=== PATIENT | male | born 1995 | race Two or more races ===

== ENCOUNTER 2021-08-11 10:43 | Inpatient (IN) | payer OTHER ==
[~2021-08-11] VITALS: Ht 175.3 cm; Wt 150.8 kg
[2021-08-11] MEDS ORDERED: IBUPROFEN 600 MG TABLET PO ONE (14:30)
[2021-08-11] MEDS ORDERED: ACETAMINOPHEN 500 MG TABLET PO ONE (14:30)
[2021-08-11 15:59] LABS: BASOPHILS % (AUTO) 0.4 % (0.0-2.0); EOSINOPHILS % (AUTO) 0.1 % (1.0-6.0); HEMATOCRIT 46.6 % (41-53); HEMOGLOBIN 15.7 g/dL (13.5-17.5); LYMPHOCYTES # (AUTO) 1.6 K/uL (1.0-4.8); LYMPHOCYTES % (AUTO) 10.9 % (22.0-44.0); MEAN CORPUSCULAR HEMOGLOBIN 28.2 pg (26.0-34.0); MEAN CORPUSCULAR HGB CONC 33.6 G/dL (31.0-37.0); MEAN CORPUSCULAR VOLUME 84 fL (80-100); MONOCYTES # (AUTO) 1.3 K/uL (0.1-1.0); NEUTROPHILS # (AUTO) 11.4 K/uL (1.8-7.7); NEUTROPHILS % (AUTO) 79.6 % (40.0-70.0); PLATELET COUNT (AUTO) 458 K/uL (150-450); RED BLOOD CELL COUNT(AUTO) 5.54 MIL/uL (4.50-5.90)
[2021-08-11] MEDS ORDERED: HEPARIN SODIUM,PORCINE 5,000 UNITS/ML VIAL SQ SCH (16:00)
[2021-08-11] MEDS ORDERED: ONDANSETRON HCL 4 MG/2 ML VIAL IVP PRN (16:00)
[2021-08-11] MEDS ORDERED: ACETAMINOPHEN 325 MG TABLET PO PRN (16:00)
[2021-08-11] MEDS ORDERED: MAGNESIUM HYDROXIDE SUSPENSION 30 ML UDCUP PO PRN (16:00)
[2021-08-11] MEDS ORDERED: SODIUM CHLORIDE 0.9% 1,000 ML IV ONE (16:00)
[2021-08-11 16:13] LABS: ANION GAP 11 mmol/L (8-16); CALCIUM, TOTAL 9.1 mg/dL (8.8-10.5); CARBON DIOXIDE 26 mmol/L (22-29); CHLORIDE 100 mmol/L (98-107); CREATININE 1.32 mg/dL (0.60-1.30); GLUCOSE,RANDOM 103 mg/dL (70-110); POTASSIUM 4.3 mmol/L (3.5-5.1); PROTHROMBIN TIME 10.3 SEC (9.4-11.6); SODIUM SERUM 137 mmol/L (136-145); UREA NITROGEN, BLOOD 13 mg/dL (7-18)
[2021-08-11 16:14] LABS: GLOMERULAR FILTR. RATE CALC > 60 mL/min (>60)
[2021-08-11 16:20] LABS: ALANINE AMINOTRANSFERASE 139 U/L (12-78); ALBUMIN 4.1 g/dL (3.4-5.0); ALKALINE PHOSPHATASE 99 U/L (46-116); ASPARTATE AMINOTRANSFERASE 64 U/L (15-37); BILIRUBIN,TOTAL 0.6 mg/dL (0.1-1.0); TOTAL PROTEIN, SERUM 8.6 g/dL (6.4-8.2)
[2021-08-11 18:07] LABS: COVID AG,FIA SOURCE NASOPHARYNGEAL
[2021-08-11] MEDS: DOCUSATE SODIUM 100 MG CAPSULE PO SCH (20:22)
[2021-08-11 23:55] VITALS: BP 140/92
[2021-08-12] MEDS: MORPHINE SULFATE 2 MG/ML SYRINGE IVP PRN ×4 (00:50→20:10)
[2021-08-12 05:41] VITALS: BP 115/68
[2021-08-12 08:10] VITALS: BP 116/78
[2021-08-12] MEDS: DOCUSATE SODIUM 100 MG CAPSULE PO SCH ×2 (09:00→20:09)
[2021-08-12] MEDS: FAMOTIDINE 20 MG TABLET PO SCH (09:00)
[2021-08-12] MEDS ORDERED: BUPIVACAINE/EPI/PF 0.5% 30 ML VIAL ONE (11:18)
[2021-08-12] MEDS ORDERED: RINGERS SOLUTION,LACTATED 1,000 ML IV ONE (11:50)
[2021-08-12] MEDS ORDERED: MEPERIDINE-PF 25 MG/ML VIAL IVP PRN (14:15)
[2021-08-12] MEDS ORDERED: HYDROmorphone 2 MG/ML VIAL IVP PRN (14:15)
[2021-08-12] MEDS ORDERED: FentaNYL CITRATE PF 100 MCG/2 ML VIAL IVP PRN (14:15)
[2021-08-12] MEDS ORDERED: POVIDONE-IODINE 10% 15 ML SOLUTION UD ONE ×2 (14:41)
[2021-08-12] MEDS ORDERED: POVIDONE-IODINE 10% 15 ML SOLUTION UD TP ONE (15:16)
[2021-08-12 16:25] VITALS: BP 132/71
[2021-08-12 19:30] VITALS: BP 145/72
[2021-08-12] MEDS ORDERED: OXYGEN THERAPY IH SCH (20:00)
[2021-08-12] MEDS: GABAPENTIN 300 MG CAPSULE PO SCH (20:09)
[2021-08-12] MEDS: ASPIRIN 81 MG CHEWABLE TABLET PO SCH (20:09)
[2021-08-12] MEDS ORDERED: SODIUM CHLORIDE 0.9% 500 ML IV ONE (21:40)
[2021-08-12] MEDS: OxyCODONE HCL/ACETAMINOPHEN 5-325 MG TABLET PO PRN (21:46)
[2021-08-12] MEDS: CeFAZolin 1 GM/DEXTROSE 50 ML IV SCH (21:46)
[2021-08-12] MEDS: ZOLPIDEM TARTRATE 5 MG TABLET PO PRN (21:46)
[2021-08-13] MEDS: OxyCODONE HCL/ACETAMINOPHEN 5-325 MG TABLET PO PRN ×3 (03:32→23:31)
[2021-08-13 04:40] VITALS: BP 117/80
[2021-08-13] MEDS: CeFAZolin 1 GM/DEXTROSE 50 ML IV SCH (06:31)
[2021-08-13] MEDS ORDERED: MIDAZOLAM HCL 2 MG/2 ML VIAL IVP ONE (06:32)
[2021-08-13] MEDS ORDERED: NEOSTIGMINE METHYLSULFATE 1 MG/ML 10 ML VIAL IVP ONE (06:32)
[2021-08-13] MEDS ORDERED: SUCCINYLCHOLINE CHLORIDE 20 MG/ML 10 ML VIAL IVP ONE (06:32)
[2021-08-13] MEDS ORDERED: HYDROmorphone 2 MG/ML VIAL IVP ONE (06:32)
[2021-08-13] MEDS ORDERED: KETOROLAC TROMETHAMINE 60 MG/2 ML VIAL IM ONE (06:32)
[2021-08-13] MEDS ORDERED: ONDANSETRON HCL 4 MG/2 ML VIAL IVP ONE (06:32)
[2021-08-13] MEDS ORDERED: ROCURONIUM BROMIDE 10 MG/ML 5 ML VIAL IVP ONE (06:32)
[2021-08-13] MEDS ORDERED: PROPOFOL 1% 20 ML VIAL IVP ONE (06:32)
[2021-08-13] MEDS ORDERED: LIDOCAINE/PF 2% 5 ML VIAL IM ONE (06:32)
[2021-08-13] MEDS ORDERED: FentaNYL CITRATE PF 100 MCG/2 ML VIAL IVP ONE (06:32)
[2021-08-13] MEDS ORDERED: GLYCOPYRROLATE 0.2 MG/ML VIAL IM ONE (06:32)
[2021-08-13 07:51] VITALS: BP 130/98
[2021-08-13] MEDS: DOCUSATE SODIUM 100 MG CAPSULE PO SCH ×2 (08:18→20:23)
[2021-08-13] MEDS: FAMOTIDINE 20 MG TABLET PO SCH (08:18)
[2021-08-13] MEDS: ASPIRIN 81 MG CHEWABLE TABLET PO SCH ×2 (08:18→20:23)
[2021-08-13] MEDS: MORPHINE SULFATE 2 MG/ML SYRINGE IVP PRN ×3 (08:22→20:23)
[2021-08-13 08:29] VITALS: BP 138/89
[2021-08-13] MEDS: HEPARIN SODIUM,PORCINE 5,000 UNITS/ML VIAL SQ SCH ×3 (09:20→23:30)
[2021-08-13 16:04] VITALS: BP 168/78
[2021-08-13 17:49] VITALS: BP 135/84
[2021-08-13] MEDS: GABAPENTIN 300 MG CAPSULE PO SCH (20:23)
[2021-08-13] MEDS: ZOLPIDEM TARTRATE 5 MG TABLET PO PRN (21:33)
[2021-08-14 04:32] VITALS: BP 106/72
[2021-08-14 07:39] VITALS: BP 141/66
[2021-08-14] MEDS: MORPHINE SULFATE 2 MG/ML SYRINGE IVP PRN ×2 (07:55→16:39)
[2021-08-14 08:29] LABS: BASOPHILS % (AUTO) 0.8 % (0.0-2.0); EOSINOPHILS % (AUTO) 3.4 % (1.0-6.0); HEMATOCRIT 41.9 % (41-53); HEMOGLOBIN 14.1 g/dL (13.5-17.5); LYMPHOCYTES # (AUTO) 1.5 K/uL (1.0-4.8); LYMPHOCYTES % (AUTO) 13.6 % (22.0-44.0); MEAN CORPUSCULAR HEMOGLOBIN 28.6 pg (26.0-34.0); MEAN CORPUSCULAR HGB CONC 33.8 G/dL (31.0-37.0); MEAN CORPUSCULAR VOLUME 85 fL (80-100); MONOCYTES % (AUTO) 8.5 % (2.0-9.0); NEUTROPHILS # (AUTO) 8.3 K/uL (1.8-7.7); NEUTROPHILS % (AUTO) 73.7 % (40.0-70.0); PLATELET COUNT (AUTO) 426 K/uL (150-450); RED BLOOD CELL COUNT(AUTO) 4.94 MIL/uL (4.50-5.90); RED CELL DISTRIBUTION WIDTH 13.6 % (11.5-14.5)
[2021-08-14 08:43] LABS: ANION GAP 7 mmol/L (8-16); CALCIUM, TOTAL 9.1 mg/dL (8.8-10.5); CARBON DIOXIDE 29 mmol/L (22-29); CHLORIDE 100 mmol/L (98-107); CREATININE 1.02 mg/dL (0.60-1.30); GLOMERULAR FILTR. RATE CALC > 60 mL/min (>60); GLUCOSE,RANDOM 94 mg/dL (70-110); POTASSIUM 4.4 mmol/L (3.5-5.1); SODIUM SERUM 136 mmol/L (136-145); UREA NITROGEN, BLOOD 11 mg/dL (7-18)
[2021-08-14] MEDS: FAMOTIDINE 20 MG TABLET PO SCH (09:03)
[2021-08-14] MEDS: HEPARIN SODIUM,PORCINE 5,000 UNITS/ML VIAL SQ SCH ×2 (09:03→16:19)
[2021-08-14] MEDS: ASPIRIN 81 MG CHEWABLE TABLET PO SCH ×2 (09:03→20:12)
[2021-08-14] MEDS: DOCUSATE SODIUM 100 MG CAPSULE PO SCH ×2 (09:03→20:12)
[2021-08-14 16:10] VITALS: BP 134/72
[2021-08-14 19:25] VITALS: BP 125/83
[2021-08-14] MEDS: GABAPENTIN 300 MG CAPSULE PO SCH (20:12)
[2021-08-14] MEDS: ZOLPIDEM TARTRATE 5 MG TABLET PO PRN (20:12)
[2021-08-15] MEDS: HEPARIN SODIUM,PORCINE 5,000 UNITS/ML VIAL SQ SCH ×4 (00:37→23:09)
[2021-08-15 09:06] VITALS: BP 142/98
[2021-08-15] MEDS: MORPHINE SULFATE 2 MG/ML SYRINGE IVP PRN (09:08)
[2021-08-15] MEDS: ASPIRIN 81 MG CHEWABLE TABLET PO SCH ×2 (09:08→19:46)
[2021-08-15] MEDS: FAMOTIDINE 20 MG TABLET PO SCH (09:08)
[2021-08-15] MEDS: DOCUSATE SODIUM 100 MG CAPSULE PO SCH ×2 (09:08→19:46)
[2021-08-15 13:30] VITALS: BP 163/76
[2021-08-15] MEDS: OxyCODONE HCL/ACETAMINOPHEN 5-325 MG TABLET PO PRN ×2 (16:13→23:09)
[2021-08-15 17:53] VITALS: BP 138/94
[2021-08-15 19:22] VITALS: BP 125/71
[2021-08-15] MEDS: GABAPENTIN 300 MG CAPSULE PO SCH (19:46)
[2021-08-15] MEDS: ZOLPIDEM TARTRATE 5 MG TABLET PO PRN (23:09)
[2021-08-16 00:32] VITALS: BP 120/67
[2021-08-16 04:22] VITALS: BP 127/73
[2021-08-16 08:19] VITALS: BP 133/72
[2021-08-16] MEDS: HEPARIN SODIUM,PORCINE 5,000 UNITS/ML VIAL SQ SCH ×2 (08:22→16:58)
[2021-08-16] MEDS: ASPIRIN 81 MG CHEWABLE TABLET PO SCH ×2 (08:22→21:06)
[2021-08-16] MEDS: DOCUSATE SODIUM 100 MG CAPSULE PO SCH ×2 (08:23→21:05)
[2021-08-16] MEDS: OxyCODONE HCL/ACETAMINOPHEN 5-325 MG TABLET PO PRN ×3 (08:23→21:11)
[2021-08-16] MEDS: FAMOTIDINE 20 MG TABLET PO SCH (08:23)
[2021-08-16 16:32] VITALS: BP 133/72
[2021-08-16 20:59] VITALS: BP 128/74
[2021-08-16] MEDS: GABAPENTIN 300 MG CAPSULE PO SCH (21:05)
[2021-08-17] MEDS: HEPARIN SODIUM,PORCINE 5,000 UNITS/ML VIAL SQ SCH ×4 (00:45→21:05)
[2021-08-17 01:24] VITALS: BP 125/59
[2021-08-17 05:18] VITALS: BP 125/63
[2021-08-17 05:22] VITALS: BP 125/59
[2021-08-17] MEDS: ASPIRIN 81 MG CHEWABLE TABLET PO SCH ×2 (08:05→21:05)
[2021-08-17] MEDS: DOCUSATE SODIUM 100 MG CAPSULE PO SCH ×2 (08:05→21:05)
[2021-08-17] MEDS: OxyCODONE HCL/ACETAMINOPHEN 5-325 MG TABLET PO PRN ×3 (08:06→21:05)
[2021-08-17] MEDS: FAMOTIDINE 20 MG TABLET PO SCH (08:06)
[2021-08-17 08:08] VITALS: BP 136/84
[2021-08-17 16:13] VITALS: BP 140/87
[2021-08-17 19:37] VITALS: BP 118/76
[2021-08-17] MEDS: ZOLPIDEM TARTRATE 5 MG TABLET PO PRN (21:05)
[2021-08-17] MEDS: GABAPENTIN 300 MG CAPSULE PO SCH (21:05)
[2021-08-18 04:27] VITALS: BP 113/72
[2021-08-18 08:22] VITALS: BP 132/78
[2021-08-18 08:27] LABS: BASOPHILS % (AUTO) 0.8 % (0.0-2.0); EOSINOPHILS % (AUTO) 3.2 % (1.0-6.0); HEMATOCRIT 43.4 % (41-53); HEMOGLOBIN 14.3 g/dL (13.5-17.5); LYMPHOCYTES # (AUTO) 1.6 K/uL (1.0-4.8); LYMPHOCYTES % (AUTO) 13.6 % (22.0-44.0); MEAN CORPUSCULAR HGB CONC 32.8 G/dL (31.0-37.0); MEAN CORPUSCULAR VOLUME 85 fL (80-100); MONOCYTES # (AUTO) 0.8 K/uL (0.1-1.0); MONOCYTES % (AUTO) 7.3 % (2.0-9.0); NEUTROPHILS # (AUTO) 8.6 K/uL (1.8-7.7); NEUTROPHILS % (AUTO) 75.1 % (40.0-70.0); PLATELET COUNT (AUTO) 538 K/uL (150-450); RED CELL DISTRIBUTION WIDTH 13.2 % (11.5-14.5)
[2021-08-18] MEDS: DOCUSATE SODIUM 100 MG CAPSULE PO SCH (08:31)
[2021-08-18] MEDS: ASPIRIN 81 MG CHEWABLE TABLET PO SCH (08:31)
[2021-08-18] MEDS: HEPARIN SODIUM,PORCINE 5,000 UNITS/ML VIAL SQ SCH (08:31)
[2021-08-18] MEDS: FAMOTIDINE 20 MG TABLET PO SCH (08:32)
[2021-08-18 08:46] LABS: ANION GAP 9 mmol/L (8-16); CALCIUM, TOTAL 9.5 mg/dL (8.8-10.5); CARBON DIOXIDE 28 mmol/L (22-29); CHLORIDE 98 mmol/L (98-107); CREATININE 0.97 mg/dL (0.60-1.30); GLOMERULAR FILTR. RATE CALC > 60 mL/min (>60); GLUCOSE,RANDOM 95 mg/dL (70-110); POTASSIUM 4.3 mmol/L (3.5-5.1); SODIUM SERUM 135 mmol/L (136-145); UREA NITROGEN, BLOOD 14 mg/dL (7-18)
[2021-08-18] MEDS ORDERED: ASPI-1450 PO (11:56)
== END 2021-08-18 12:50 | disposition home or self-care (01) | DRG 493 ==
LOC: EMS 10:46 → 6S 19:00 → UNDOADMIN 19:00 → 6N 19:00
PROVIDERS: ADMIT Internal Medicine; ATTEND Internal Medicine
PROC: 0QSG35Z Reposition Right Tibia with External Fixation Device, Percutaneous Approach (ICD-10-PCS; principal; 2021-08-12 14:00)
DX: S82.871A Displaced pilon fracture of right tibia, initial encounter for closed fracture (principal); Z68.42 Body mass index [BMI] 45.0-49.9, adult; S82.401A Unspecified fracture of shaft of right fibula, initial encounter for closed fracture; W17.89XA Other fall from one level to another, initial encounter; E11.9 Type 2 diabetes mellitus without complications; Z20.822 Contact with and (suspected) exposure to COVID-19; E66.01 Morbid (severe) obesity due to excess calories; E78.00 Pure hypercholesterolemia, unspecified; I10 Essential (primary) hypertension; L08.9 Local infection of the skin and subcutaneous tissue, unspecified; M79.604 Pain in right leg; M79.641 Pain in right hand; Y93.39 Activity, other involving climbing, rappelling and jumping off; Y92.89 Other specified places as the place of occurrence of the external cause; Y99.8 Other external cause status
CPT/HCPCS: 29515; 80048; 80053; 85025; 85610; 85730; 86850; 86900; 86901; 87081; 97110; 97116; 97162; 97530; 99285; J0330; J0690; J1170; J1644; J1885; J2250; J2270; J2405; J2704; J3010; J3490; J7040; J7120; Q9967